=== PATIENT | male | born 1965 | race African-American/Black ===

== ENCOUNTER 2019-05-11 10:16 | Emergency (ER) | payer SELFPAY ==
[~2019-05-11] VITALS: Ht 177.8 cm; Wt 99.8 kg
[2019-05-11] MEDS ORDERED: NAPROXEN 500 MG TABLET PO STA (10:27)
[2019-05-11] MEDS ORDERED: HYDROcodone/APAP 5/325MG 1 TAB TABLET PO ONE (10:30)
[2019-05-11] MEDS ORDERED: cloNIDine HCL 0.1 MG TABLET PO ONE (10:30)
[2019-05-11] MEDS ORDERED: CYCLOBENZAPRINE 10 MG TABLET. PO ONE (10:30)
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
[2019-05-11 13:07] VITALS: BP 202/117
== END 2019-05-11 13:14 | disposition home or self-care (01) ==
LOC: ER 10:16
DX: M79.662 Pain in left lower leg (principal); M54.5 Low back pain; I10 Essential (primary) hypertension; F41.9 Anxiety disorder, unspecified; G89.29 Other chronic pain; Z88.8 Allergy status to other drugs, medicaments and biological substances; V03.90XA Pedestrian on foot injured in collision with car, pick-up truck or van, unspecified whether traffic or nontraffic accident, initial encounter; Y93.01 Activity, walking, marching and hiking; Y92.481 Parking lot as the place of occurrence of the external cause; Y99.8 Other external cause status
CPT/HCPCS: 72131; 73590; 99284